=== PATIENT | male | born 1975 | race Caucasian/White ===

== ENCOUNTER 2019-02-26 12:42 | Emergency (ER) | payer OTHER ==
[2019-02-26] MEDS ORDERED: BABY ASPIRIN 81 MG CHEW PO ONE (13:08)
--- NOTE | 2019-02-26 13:15 | ERPHSYRPT ---
- History of Present Illness Time Seen by Provider: 02/26/19 13:00 Historian: patient Exam Limitations: no limitations Patient Subjective Stated Complaint: Chest pain Triage Nursing Assessment: Patient ambulated back to ED and transferred self to bed. Patient A+O X 3. Patient's skin flushed, warm and dry. Patient complains of chest pain and palpitations for the past couple of days. Patient states pain is intermittent aching 2/10. Patient's lungs clear a/p max. Heart tones audible. Physician History: 43 yo gen healthy male presented with intermittent mild to moderate chest pressure/tightness with dull aching pain substernally for 1 week with activity/ exertion with some dyspnea as well which gets better with resting. also have palpitations intermittently.he was seen by PCP today and is sent in ER for further eval. he is not having chest pain or pressure /sob at present at all. Timing/Duration: week(s) (1) Activities at Onset: activity Quality: dullness, pressure Location: substernal Chest Pain Radiation: no radiation Severity of Pain-Max: mild Severity of Pain-Current: none Modifying Factors: Improves With: exertion Associated Symptoms: palpitations, shortness of breath Prior Chest Pain/Cardiac Workup: no prior chest pain Nitro Today/Relief: no nitro taken today Aspirin Treatment Today: no aspirin today Allergies/Adverse Reactions: Penicillins Allergy (Verified 02/26/19 12:48) Home Medications: No Reportable Medications [No Reported Medications] 02/26/19 [History] Hx Influenza Vaccination/Date Given: No Hx Pneumococcal Vaccination/Date Given: No Immunizations Up to Date: Yes - Review of Systems Constitutional: No Symptoms Eyes: No Symptoms Ears, Nose, & Throat: No Symptoms Respiratory: Dyspnea on Exertion (FLEMING), No Wheezing Cardiac: Chest Pain, Palpitations Abdominal/Gastrointestinal: No Symptoms Genitourinary Symptoms: No Symptoms Musculoskeletal: No Symptoms Skin: No Symptoms Neurological: No Symptoms Psychological: No Symptoms Endocrine: No Symptoms Hematologic/Lymphatic: No Symptoms Immunological/Allergic: No Symptoms - Past Medical History Pertinent Past Medical History: Yes Neurological History: No Pertinent History ENT History: No Pertinent History Cardiac History: Hypertension Respiratory History: No Pertinent History Endocrine Medical History: No Pertinent History Musculoskeletal History: No Pertinent History GI Medical History: No Pertinent History History: No Pertinent History Psycho-Social History: No Pertinent History Male Reproductive Disorders: No Pertinent History - Past Surgical History Past Surgical History: Yes Neuro Surgical History: No Pertinent History Cardiac: No Pertinent History Respiratory: No Pertinent History Gastrointestinal: Appendectomy Genitourinary: No Pertinent History Musculoskeletal: No Pertinent History Male Surgical History: No Pertinent History - Social History Smoking Status: Never smoker Exposure to second hand smoke: Yes Drug Use: none Patient Lives Alone: No - Nursing Vital Signs Nursing Vital Signs: Initial Vital Signs Pulse Rate 78 02/26/19 12:48 Respiratory Rate 18 02/26/19 12:48 Blood Pressure 159/125 02/26/19 12:48 O2 Sat by Pulse Oximetry 97 02/26/19 12:48 Pain Scale Pain Intensity 2 - Physical Exam General Appearance: no apparent distress Eye Exam: PERRL/EOMI, eyes nml inspection Ears, Nose, Throat Exam: normal ENT inspection, TMs normal, pharynx normal Neck Exam: normal inspection, non-tender, supple, full range of motion Respiratory Exam: normal breath sounds, lungs clear, No chest tenderness Cardiovascular Exam: regular rate/rhythm, normal heart sounds Gastrointestinal/Abdomen Exam: soft, normal bowel sounds Back Exam: normal inspection, normal range of motion, No CVA tenderness Extremity Exam: normal inspection, normal range of motion Neurologic Exam: alert, oriented x 3, cooperative, 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 Skin Exam: normal color SpO2 Interpretation: normal SpO2: 97 O2 Delivery: Room Air - Course Nursing assessment & vital signs reviewed: Yes EKG Interpreted by Me: RATE ([id number]), NORMAL AXIS, NORMAL INTERVALS, NORMAL QRS Ordered Tests: Active Orders 24 hr Category Date Time Status Project Technician STAT Care 02/26/19 13:09 Active EKG-ER Only STAT Care 02/26/19 13:08 Active IV Insertion STAT Care 02/26/19 13:08 Active Pulse Oximetry (ED) STAT Care 02/26/19 13:08 Active CHEST 1 VIEW (PORTABLE) Stat Exams 02/26/19 13:09 Completed CBC W DIFF Stat Lab 02/26/19 12:55 Completed CMP Stat Lab 02/26/19 12:55 Completed D-DIMER QUANTITATIVE Stat Lab 02/26/19 12:55 Received NT PRO BNP Stat Lab 02/26/19 12:55 Completed TROPONIN Q3H Lab 02/26/19 12:55 Completed TROPONIN Q3H Lab 02/26/19 16:15 Ordered TROPONIN Q3H Lab 02/26/19 19:15 Ordered TROPONIN Q3H Lab 02/26/19 22:15 Ordered TROPONIN Q3H Lab 02/27/19 01:15 Ordered Medication Summary Discontinued Medications Generic Name Dose Route Start Last Admin Trade Name Carterq PRN Reason Stop Dose Admin Aspirin 324 mg 02/26/19 13:08 02/26/19 13:18 Baby Aspirin 81 Mg Chew PO 02/26/19 13:09 324 mg STAT ONE Administration Aspirin Confirm 02/26/19 13:17 Baby Aspirin 81 Mg Chew Administered 02/26/19 13:18 Dose 324 mg .ROUTE .STK-MED ONE Lab/Rad Data: Laboratory Result Diagrams 02/26/19 12:55 02/26/19 12:55 Laboratory Results 02/26/19 02/26/19 02/26/19 Range/Units 12:55 12:55 12:55 WBC 6.7 (4.0-10.5) K/mm3 RBC 5.22 (4.1-5.6) M/mm3 Hgb 15.8 (12.5-18.0) gm/dl Hct 45.1 (42-50) % MCV 86.4 (78-100) fl MCH 30.3 (26-32) pg MCHC 35.0 (32-36) g/dl RDW 13.5 (11.5-14.0) % Plt Count 231 (150-450) K/mm3 MPV 11.3 H (7.5-11.0) fl Gran % 62.3 (36.0-66.0) % Eos # (Auto) 0.16 (0-0.5) Absolute Lymphs (auto) 1.71 (1.0-4.6) Absolute Monos (auto) 0.64 (0.0-1.3) Lymphocytes % 25.4 (24.0-44.0) % Monocytes % 9.5 (0.0-12.0) % Eosinophils % 2.4 (0.00-5.0) % Basophils % 0.4 (0.0-0.4) % Absolute Granulocytes 4.18 (1.4-6.9) Basophils # 0.03 (0-0.4) Sodium 139 (137-145) mmol/L Potassium 3.4 L (3.5-5.1) mmol/L Chloride 100 (98-107) mmol/L Carbon Dioxide 29 (22-30) mmol/L Anion Gap 13.9 (5-15) MEQ/L BUN 10 (9-20) mg/dL Creatinine 0.82 (0.66-1.25) mg/dL Estimated GFR > 60.0 ML/MIN Glucose 93 (74-106) mg/dL Calcium 9.5 (8.4-10.2) mg/dL Total Bilirubin 0.80 (0.2-1.3) mg/dL AST 35 (17-59) U/L ALT 36 (0-50) U/L Alkaline Phosphatase 109 (38-126) U/L Troponin I < 0.012 (0.000-0.034) ng/mL NT-Pro-B Natriuret Pep 25.7 (0-450) pg/mL Serum Total Protein 8.9 H (6.3-8.2) g/dL Albumin 4.6 (3.5-5.0) g/dL - Progress Progress: improved, re-examined Air Movement: good Progress Note: 02/26/19 14:51 43 yo is evaluated for worsening FLEMING . EKG is NSR, negative initial troponing.no acute findings in chest xrays. unremarkable chemistries grossly. d/ w PCP who saw him today and recommended 23 hours obs and further chest pain workup because of the concerning history which i agree with him. remained asymptomatic whith resting while in ER.[facility] has no beds , d/w at [facility] ER and patient is accepted for transfer.plan d/w Patient and he is agreeable going to [facility] Blood Culture(s) Obtained: No Antibiotics given: No Discussed with : Ana Will see patient in: other Counseled pt/family regarding: lab results, diagnosis, need for follow-up, rad results - Departure Departure Disposition: Transfer Clinical Impression: Chest pain, rule out acute myocardial infarction Condition: Stable Critical Care Time: No
[2019-02-26] MEDS ORDERED: BABY ASPIRIN 81 MG CHEW ONE (13:17)
[2019-02-26 13:18] LABS: Absolute Neutrophil Ct (ANC) 4.18 (1.4-6.9); BASOPHIL % 0.4 % (0.0-0.4); Basophil (Absolute #) 0.03 (0-0.4); Eosinophil % 2.4 % (0.00-5.0); Eosinophil (Absolute #) 0.16 (0-0.5); Hematocrit 45.1 % (42-50); Hemoglobin 15.8 gm/dl (12.5-18.0); Lymphocyte (Absolute #) 1.71 (1.0-4.6); Lymphocytes % 25.4 % (24.0-44.0); Mean Cell Volume 86.4 fl (78-100); Mean Corpuscular Hemoglobin 30.3 pg (26-32); Mean Platelet Volume 11.3 fl (7.5-11.0); Monocyte (Absolute #) 0.64 (0.0-1.3); Monocytes % 9.5 % (0.0-12.0); Neutrophil % 62.3 % (36.0-66.0); Platelet Count 231 K/mm3 (150-450); Red Blood Count 5.22 M/mm3 (4.1-5.6); Red Cell Distribution Width 13.5 % (11.5-14.0); White Blood Count 6.7 K/mm3 (4.0-10.5)
[2019-02-26 13:33] LABS: ALBUMIN 4.6 g/dL (3.5-5.0); ALKALINE PHOSPHATASE 109 U/L (38-126); ANION GAP 13.9 MEQ/L (5-15); BLOOD UREA NITROGEN 10 mg/dL (9-20); CHLORIDE 100 mmol/L (98-107); Calcium 9.5 mg/dL (8.4-10.2); Carbon Dioxide 29 mmol/L (22-30); Creatinine 1 0.82 mg/dL (0.66-1.25); Glucose 93 mg/dL (74-106); NT PRO BNP 25.7 pg/mL (0-450); Potassium 3.4 mmol/L (3.5-5.1); SGOT/AST 35 U/L (17-59); SGPT/ALT 36 U/L (0-50); SODIUM 139 mmol/L (137-145); Total Protein 8.9 g/dL (6.3-8.2)
--- NOTE | 2019-02-26 13:38 | XRAY ---
Indication: Chest pain. Comparison: None Portable chest demonstrates normal heart and lungs. Bony thorax intact.
[2019-02-26 14:59] VITALS: O2SAT 97
[2019-02-26 16:04] VITALS: BP 148/108; PULSE 66
== END 2019-02-26 17:04 | disposition short-term general hospital (02) ==
LOC: ED 12:42
DX: R07.9 Chest pain, unspecified (principal)
CPT/HCPCS: 36000; 36415; 71045; 80053; 83880; 84484; 85025; 85379; 93005; 93041; 94760; 99285; A9270-GY